=== PATIENT | male | born 2000 | race Hispanic/Latino ===

== ENCOUNTER 2021-03-30 14:21 | Emergency (ER) | payer SELFPAY ==
--- NOTE | ~2021-03-30 | CT_ITS ---
EXAMINATION: CT abdomen pelvis wo con DATE: 03/30/2021 18:25 INDICATION: Left-sided abdominal pain. Dysuria, diminished urine output for one week. TECHNIQUE: Computed tomography (CT) of the abdomen and pelvis was performed without intravenous contr ast. Automated exposure control and iterative reconstruction technique were employed. Exam dose: 427 .51 mGy-cm total exam DLP. COMPARISON: None. FINDINGS: The lung bases are clear of infiltrate or consolidation. Normal heart size. No pericardial or pleural effusion. The liver, gallbladder, bile ducts, spleen, pancreas, and adrenal glands and kidneys are unremarkable on this limited noncontrast examination. No urinary tract calculus or hydroureteronephrosis. The uri nary bladder and prostate gland are unremarkable. Normal caliber of the abdominal aorta. No intraperitoneal or retroperitoneal or pelvic mass lesion or adenopathy or ascites. Normal appendix. No bowel obstruction, bowel wall thickening, pneumatosis or intraperitoneal free air . Included skeletal structures are unremarkable. IMPRESSION: No significant abnormality Reviewed, dictated and finalized at [facility]. Reviewed, dictated and finalized at [facility]. IMPRESSION: No significant abnormality
--- NOTE | ~2021-03-30 | US_ITS ---
US scrotum doppler DATE: 03/30/2021 16:59 INDICATION: Scrotal pain TECHNIQUE: Real-time and color flow imaging and Doppler analysis COMPARISON: None FINDINGS: Right testicle measures 5.0 x 2.6 x 2.7 cm. Left testicle measures 4.6 x 2.2 x 2.9 cm. There is homogeneous and symmetric echotexture of the testicles. There is no evidence of testicular m ass lesion. There is normal symmetric vascularity of the testicles, without evidence of torsion. Epididymis appears unremarkable bilaterally. Small left hydrocele. No evidence of varicocele. IMPRESSION: No evidence of testicular torsion or testicular mass lesion Small left hydrocele Reviewed, dictated and finalized at [facility]. Reviewed, dictated and finalized at [facility].
[2021-03-30 14:27] VITALS: BP 149/76; PULSE 88; RESP 18; TEMP 36.3; O2SAT 100
[2021-03-30 15:30] VITALS: BP 149/76; PULSE 78; RESP 20; TEMP 36.3; O2SAT 100
[2021-03-30 15:55] LABS: Basophils Percent Auto 0.3 % (0.2-1.2); Eosinophils Absolute Auto 0.1 K/mm3 (0-0.3); Eosinophils Percent Auto 1.3 % (0-4.4); Hemoglobin 13.6 g/dL (14.0-18.0); Immature Granulocyte Absolute 0.01 K/mm3 (0.00-0.031); Immature Granulocyte Percent A 0.2 % (0-0.5); Lymphocytes Absolute Auto 1.85 K/mm3 (0.9-3.2); Lymphocytes Percent Auto 29.5 % (18.3-44.2); Mean Corpuscular HGB Conc 33.2 g/dl (32-36); Mean Corpuscular Hemoglobin 30.8 pg (26-34); Mean Platelet Volume 10.1 fl (7.4-10.4); Monocytes Absolute Auto 0.6 K/mm3 (0.1-0.6); Monocytes Percent Auto 9.1 % (2.6-8.5); Neutrophils Absolute Auto 3.7 K/mm3 (1.3-6.7); Neutrophils Percent Auto 59.6 % (45.5-73.1); Platelet Count Result 210 k/mm3 (150-375); Red Blood Count 4.41 M/mm3 (4.6-6.20); Red Cell Distribution Width 11.7 % (11.5-14.5); White Blood Count 6.3 K/mm3 (4.5-10.0)
[2021-03-30 15:56] LABS: Add Urine Microscopic? NO; Appearance Urine Clear (Clear); Bilirubin Urine Negative (Negative); Blood Urine Negative (Negative); Color Urine Yellow (Yellow); Glucose Urine UA Negative (Negative); Ketones Urine Negative (Negative); Leukocyte Esterase Ur Negative LEU/UL (Negative); Nitrate Urine Negative (Negative); Protein Urine Negative (Negative); Specific Grav Ur 1.018 (1.001-1.035); Urobilinogen Urine Negative mg/dL (<2.0)
[2021-03-30 16:05] LABS: Alanine Aminotransferase 17 U/L (4-50); Alkaline Phosphatase 73 U/L (38-126); Anion Gap 11 mmol/L (8-16); Aspartate Amino Transferase 25 U/L (17-59); Bilirubin,Total 0.6 mg/dL (0.2-1.3); Blood Urea Nitrogen 14 mg/dL (9-20); Calcium 9.7 mg/dL (8.4-10.2); Carbon Dioxide 25 mmol/L (22-30); Chloride 103 mmol/L (98-107); Estimated CRCL calculation 137 ml/min; Estimated Glomerular Filt Rate > 60; Glucose 111 mg/dL (65-110); Lipase 84 U/L (23-300); Potassium 3.9 mmol/L (3.4-5.0); Sodium 139 mmol/L (137-145)
[2021-03-30 17:51] VITALS: BP 134/78; PULSE 68; RESP 18; O2SAT 99
--- NOTE | 2021-03-30 19:34 | ED.GENADULT ---
HPI - General Adult General Chief complaint: Urogenital-Male Stated complaint: painful urination Time Seen by Provider: 03/30/21 15:40 Source: RN notes reviewed History of Present Illness HPI narrative: Patient presents emergency department from home for abdominal and testicular pain. Patient states that for the past year he has had pain in his left lower abdomen radiating to his left testicle states that the pain is intermittent but is present more often than not pain is described as aching in nature he also notes he has been having decreased urine output he denies any pain or burning with urination denies any fevers or chills nausea vomiting diarrhea or any other symptoms. States his last sexual encounter was a year ago denies any urethral discharge denies any swelling of the testicles Related Data Allergies Allergy/AdvReac Type Severity Reaction Status Date / Time No Known Allergies Allergy Verified 03/30/21 15:33 Review of Systems Review of Systems: Gen.: Denies fevers or chills ENT: Denies congestion Respiratory: Denies shortness of breath or cough CV: Denies chest pain or palpitations GI: Reports left lower quadrant abdominal pain, denies nausea, emesis or diarrhea denies burning, urgency, frequency or hematuria Musculoskeletal: Denies back pain or muscle pain Neuro: Denies numbness, tingling, weakness or focal weakness Skin: Denies rash Except as documented, all other systems reviewed and negative [facility] Past Medical History Medical History (Updated 03/30/21 @ 19:37 by Gerald Rust DO) Patient denies significant medical history Social History Social History (Updated 03/30/21 @ 19:35 by Gerald Rust DO) Smoking status: Current every day smoker Exam Narrative: APPEARANCE: No acute distress, nontoxic, resting in bed HEENT: Normocephalic, atraumatic, OMM RESPIRATORY: No respiratory distress, clear to auscultation bilaterally with no rhonchi wheezing or rales CARDIOVASCULAR: RRR s murmur ABDOMINAL: Soft nondistended mild tenderness left lower quadrant no tenderness left upper quadrant or right upper quadrant right lower quadrant rebound or guarding, no hernias palpated : No lesions, no phimosis or paraphimosis, no scrotal swelling or erythema mild tenderness over left testicle no tenderness of the right testicle no hernia palpated MUSCULOSKELETAl: Moves all extremities. No clubbing, cyanosis or edema. NEURO: Awake and alert. Following commands, speech normal, no focal deficits SKIN:: Warm, dry. Normal Color PSYCHIATRIC: Normal affect/mood Course Course Emergency Course: Discussed with patient results of workup and diagnosis. Discussed need for follow-up with primary care, proper use of medication, and reasons to return to the emergency department. Patient understands and agrees to current treatment plan Vital Signs Vital signs: Vital Signs Temperature 97.3 F L 03/30/21 14:27 Pulse Rate 88 03/30/21 14:27 Respiratory Rate 18 03/30/21 14:27 Blood Pressure 149/76 H 03/30/21 14:27 Pulse Oximetry 100 03/30/21 14:27 Temperature 97.3 F L 03/30/21 15:30 Pulse Rate 68 03/30/21 17:51 Respiratory Rate 18 03/30/21 17:51 Blood Pressure 134/78 03/30/21 17:51 Pulse Oximetry 99 03/30/21 17:51 Medical Decision Making Vital Signs Vital Signs: Vital Signs Temperature 97.3 F L 03/30/21 14:27 Pulse Rate 88 03/30/21 14:27 Respiratory Rate 18 03/30/21 14:27 Blood Pressure 149/76 H 03/30/21 14:27 Pulse Oximetry 100 03/30/21 14:27 Temperature 97.3 F L 03/30/21 15:30 Pulse Rate 68 03/30/21 17:51 Respiratory Rate 18 03/30/21 17:51 Blood Pressure 134/78 03/30/21 17:51 Pulse Oximetry 99 03/30/21 17:51 Lab Data Result diagrams: 03/30/21 15:46 03/30/21 15:46 Labs: Lab Results 03/30/21 03/30/21 03/30/21 Range/Units 15:46 15:46 15:47 WBC 6.3 (4.5-10.0) K/mm3 RBC 4.41 L (4.6-6.20) M/mm3 Hgb 13.6 L
[2021-03-30 20:01] VITALS: BP 139/76; PULSE 60; RESP 18; TEMP 37.2; O2SAT 100
== END 2021-03-30 20:03 | disposition home or self-care (01) ==
PROVIDERS: Emergency Medicine; Emergency Provider Emergency Medicine
DX: R10.32 Left lower quadrant pain (principal); N50.812 Left testicular pain; F17.200 Nicotine dependence, unspecified, uncomplicated
CPT/HCPCS: 36415; 74176; 76870; 80053; 81003; 83690; 85025; 93976; 99284